=== PATIENT | female | born 1950 | race Caucasian/White ===

== ENCOUNTER 2023-09-23 23:32 | Inpatient (IN) | payer MEDICARE ==
[2023-09-23] MEDS ORDERED: Acetaminophen 325 MG TAB PO PRN (23:59)
[2023-09-24 00:35] VITALS: BMI 29.7
[2023-09-24] MEDS ORDERED: hydrALAZINE 20 MG/ML VIAL SLOW IVP PRN (00:50)
[2023-09-24] MEDS ORDERED: Ondansetron PF 4 MG/2 ML Vial IVP PRN (00:53)
[2023-09-24] MEDS: traMADol HCl 50 MG TAB PO PRN ×2 (00:56→10:32)
[2023-09-24 04:14] LABS: #Basophils 0.1 thou/uL (0.0-0.2); #Eosinphils 0.2 thou/uL (0.0-0.7); #Monocytes 0.8 thou/uL (0.11-0.59); %Basophils 0.7 % (0.0-1.0); %Eosinophils 2.8 % (0.0-10.0); %Lymphocytes 25.5 % (21.0-51.0); %Monocytes 11.6 % (0.0-10.0); %Neutrophils 59.1 % (42.0-75.0); Hematocrit 38.2 % (36.0-47.0); Hemoglobin 12.4 g/dL (12.0-16.0); Mean Corpuscular HGB CONC 32.5 g/dL (32.0-36.0); Mean Corpuscular Volume 98.5 fl (78.0-98.0); Platelet Count 298 10x3/uL (130-400); RBC Distribution Width 12.7 % (11.5-14.5); Red Blood Cell (RBC) Count 3.88 mill/uL (4.20-5.40); White Blood Cell (WBC) Count 6.8 10x3/uL (4.8-10.8)
[2023-09-24 04:54] LABS: Anion Gap 13 mmol/L (10-20); BUN (Urea Nitrogen) 18 mg/dL (9.8-20.1); Calc. Creatinine Clearance 89 mL/min (70-130); Calcium 9.3 mg/dL (7.8-10.44); Carbon Dioxide 23 mmol/L (23-31); Cardiac Risk 2.1 (Less than 4.5); Chloride 107 mmol/L (98-107); Cholesterol 146 mg/dl (< 200 Desired); Estimated GFR 93; Glucose 100 mg/dL (83-110); HDL Cholesterol 68 mg/dL (>60 Neg Risk); LDL Cholesterol, Calculated 68 mg/dL; Potassium 3.6 mmol/L (3.5-5.1); Sodium 139 mmol/L (136-145); Triglycerides 52 mg/dL (Less than 150)
[2023-09-24 05:23] LABS: Vitamin B12 Greater than 2000 pg/mL (211-911)
[2023-09-24] MEDS: Aspirin 81 mg Enteric Coated Tablet PO SCH (08:58)
[2023-09-24] MEDS ORDERED: Lactated Ringer's 1,000 ML IV SCH (10:45)
[2023-09-24] MEDS ORDERED: Atorvastatin Calcium 40 MG TAB PO SCH (21:00)
[2023-09-25] MEDS ORDERED: Ibuprofen 200 MG TAB PO SCH (09:15)
[2023-09-25] MEDS: Aspirin 81 mg Enteric Coated Tablet PO SCH (09:22)
[2023-09-25 12:08] VITALS: TEMP 98.4
[2023-09-25 12:50] VITALS: BP 144/76
[2023-09-27] MEDS ORDERED: FLU VACC QS2023(65UP)/MF59C/PF 60 MCG/0.5 ML SYRINGE IM ONE (02:45)
== END 2023-09-25 15:55 | disposition home or self-care (01) | DRG 103 ==
LOC: 2NO 23:32 → OBSVTOIN 09-24 15:07
PROVIDERS: ADMIT Student in an Organized Health Care Education/Training Program; ATTEND Family Medicine
PROC: 4A10X4Z Monitoring of Central Nervous Electrical Activity, External Approach (ICD-10-PCS; principal; 2023-09-24)
DX: G43.909 Migraine, unspecified, not intractable, without status migrainosus (principal); E78.5 Hyperlipidemia, unspecified; I10 Essential (primary) hypertension; Z96.652 Presence of left artificial knee joint; Z90.710 Acquired absence of both cervix and uterus; Z79.899 Other long term (current) drug therapy
CPT/HCPCS: 36415; 70551; 80048; 80061; 82607; 84443; 85025; 86140; 93880; 95816; 95819; J7120